=== PATIENT | male | born 1990 | race Caucasian/White ===

== ENCOUNTER 2019-01-30 07:08 | Emergency (ER) | payer OTHER ==
[2019-01-30] MEDS ORDERED: NS 1,000 ML IV ONE ×2 (07:33→08:46)
--- NOTE | 2019-01-30 07:42 | EDPHY ---
H & P Time Seen by Provider: 01/30/19 07:19 HPI/ROS: CHIEF COMPLAINT: Nausea, vomiting, shortness of breath HISTORY OF PRESENT ILLNESS: The patient is a 28-year-old male with a history of anxiety who presents to the emergency department with multiple complaints. Patient states that he was well last evening. At approximately 1:00 am he developed nausea and frequent episodes of nonbloody vomiting. Patient states that he has diffuse abdominal cramping. He has had no dysuria frequency. The patient also adds that he has a history of anxiety. He felt as though he was having an ear anxiety attack. He began to "hyperventilate."He feels this is made his breathing more difficult. He has no recent cough or fever. No travel. No sick contacts at home. REVIEW OF SYSTEMS: 10 systems were reveiwed and are negative with the exception of the elements mentioned in the history of present illness. Past Medical/Surgical History: Includes anxiety Past surgical history: Denies Social history: Patient occasionally drinks wine. Patient does not smoke Smoking Status: Never smoked Physical Exam: Vitals noted GENERAL: Mild acute distress. Patient looks mildly uncomfortable. Alert. HEENT: Eyes normal to inspection, normal pharynx, no signs of dehydration. NECK: Normal, supple. RESPIRATORY: No respiratory distress. Clear to auscultation bilaterally, no rales, rhonchi or wheezing. CVS: Regular rate and rhythm, no rubs, murmurs, or gallops. ABDOMEN: Soft, nontender, nondistended, no organomegaly. Benign BACK: Normal to inspection, no CVA tenderness. SKIN: Normal color, no rash, warm, dry. No pallor. EXTREMITIES: No pedal edema, no calf tenderness, no Homans sign or cords, no joint swelling. NEURO/PSYCH: Alert and oriented, normal mood and affect, normal motor sensory exam. Constitutional: Initial Vital Signs Temperature (C) 37 C 01/30/19 07:11 Heart Rate 89 01/30/19 07:11 Respiratory Rate 16 01/30/19 07:11 Blood Pressure 107/67 01/30/19 07:11 O2 Sat (%) 95 01/30/19 07:11 O2 Delivery Mode Room Air Allergies/Adverse Reactions: amoxicillin Allergy (Verified 01/30/19 07:10) Penicillins Allergy (Verified 01/30/19 07:10) Home Medications: Medication Instructions Recorded DULoxetine 01/30/19 Hydrocodone/APAP 5/325 [Weatherly 1 - 2 tab PO Q4 #13 tab 01/30/19 5/325 (RX)] Ondansetron Odt [Zofran Odt 4 mg 4 mg PO Q4PRN PRN #7 tab 01/30/19 (*)] Xanax 01/30/19 Medical Decision Making - Diagnostics Imaging Results: Imaging Impressions Chest X-Ray 01/30/19 07:45 Impression: 1. No active cardiopulmonary disease seen. Abdomen Ultrasound 01/30/19 10:26 Impression: 1. Normal gallbladder. No cholelithiasis, biliary dilation, hydronephrosis or free fluid. 2. Pancreas obscured by gas. Findings discussed with Emergency Department physician, Josefina Willett on 01/30, 11:36. ED Course/Re-evaluation: In the emergency department I discussed possible etiologies with the patient. I answered all his questions. IV was placed. Patient given normal saline 1 L IV for hydration. He was given Zofran 4 mg IV for nausea. Laboratory studies were ordered. Due the patient's shortness of breath EKG and chest x-ray were ordered. CBC is unremarkable. On recheck the patient states he is feeling better. Chemistry is unremarkable. Patient has elevated total bilirubin of 2.1. Unconjugated bilirubin of 1.7. Patient states that 1 of his friends texted him that he has nausea and vomiting as well. They did eat together. Right upper quadrant ultrasound was ordered. Hepatitis panel was ordered. Patient has a headache. He is given Toradol 15mg IV. EKG shows normal sinus rhythm, normal rate, normal axis, normal intervals. There are no ST or T-wave abnormalities. EKG is normal as interpreted by me. On recheck the patient feels better. Patient is abdomen is soft, nontender nondistended. Ultrasound: Please refer the dictated report. No acute disease noted. 11 50: I rechecked the patient. He had no further episodes of nausea or vomiting. His abdomen is soft, nontender nondistended. He was given warnings. I explained that his hepatitis panel is pending. He is given follow-up with primary care physician as well as gastroenterology Differential Diagnosis: Differential includes but is not limited to bronchitis, influenza, pneumonia, small-bowel obstruction, perforation, intussusception, volvulus, gastroenteritis , electrolyte abnormality, sugar abnormality, bacteremia, sepsis, anxiety - Data Points Laboratory Results: Laboratory Results 01/30/19 07:20 01/30/19 07:20 01/30/19 01/30/19 01/30/19 08:41 07:20 07:20 WBC 8.64 10^3/uL 10^3/uL (3.80-9.50) RBC 5.47 10^6/uL 10^6/uL (4.40-6.38) Hgb 17.2 g/dL g/dL (13.7-17.5) Hct 47.9 % % (40.0-51.0) MCV 87.6 fL fL (81.5-99.8) MCH 31.4 pg pg (27.9-34.1) MCHC 35.9 g/dL g/dL (32.4-36.7) RDW 11.7 % % (11.5-15.2) Plt Count 221 10^3/uL 10^3/uL (150-400) MPV 9.6 fL fL (8.7-11.7) Neut % (Auto) 89.8 % H % (39.3-74.2) Lymph % (Auto) 3.9 % L % (15.0-45.0) Pender % (Auto) 5.4 % % (4.5-13.0) Eos % (Auto) 0.5 % L % (0.6-7.6) Baso % (Auto) 0.2 % L % (0.3-1.7) Nucleat RBC Rel Count 0.0 % % (0.0-0.2) Absolute Neuts (auto) 7.76 10^3/uL H 10^3/uL (1.70-6.50) Absolute Lymphs (auto) 0.34 10^3/uL L 10^3/uL (1.00-3.00) Absolute Monos (auto) 0.47 10^3/uL 10^3/uL (0.30-0.80) Absolute Eos (auto) 0.04 10^3/uL 10^3/uL (0.03-0.40) Absolute Basos (auto) 0.02 10^3/uL 10^3/uL (0.02-0.10) Absolute Nucleated RBC 0.00 10^3/uL 10^3/uL (0-0.01) Immature Gran % 0.2 % % (0.0-1.1) Immature Gran # 0.02 10^3/uL 10^3/uL (0.00-0.10) RBC/WBC/PLT Morphology TNP Platelet Estimate TNP Sodium 139 mEq/L mEq/L (135-145) Potassium 4.4 mEq/L mEq/L (3.5-5.2) Chloride 103 mEq/L mEq/L (97-110) Carbon Dioxide 24 mEq/l mEq/l (22-31) Anion Gap 12 mEq/L mEq/L (6-14) BUN 27 mg/dL H mg/dL (7-23) Creatinine 1.1 mg/dL mg/dL (0.7-1.3) Estimated GFR > 60 Glucose 114 mg/dL H mg/dL (70-100) Calcium 9.7 mg/dL mg/dL (8.5-10.4) Total Bilirubin 2.1 mg/dL H mg/dL (0.1-1.4) Conjugated Bilirubin 0.4 mg/dL mg/dL (0.0-0.5) Unconjugated Bilirubin 1.7 mg/dL H mg/dL (0.0-1.1) AST 54 IU/L IU/L (17-59) ALT 60 IU/L IU/L (21-72) Alkaline Phosphatase 118 IU/L IU/L (38-126) Total Protein 7.6 g/dL g/dL (6.3-8.2) Albumin 4.9 g/dL g/dL (3.5-5.0) Lipase 90 IU/L IU/L (23-300) Nasal Influenza A PCR NEGATIVE FOR FLU A (NEGATIVE) Nasal Influenza B PCR NEGATIVE FOR FLU B (NEGATIVE) Hepatitis A IgM Ab Hep Bs Antigen Hep B Core IgM Ab Hepatitis C Antibody 01/30/19 07:00 WBC RBC Hgb Hct MCV MCH MCHC RDW Plt Count MPV Neut % (Auto) Lymph % (Auto) Pender % (Auto) Eos % (Auto) Baso % (Auto) Nucleat RBC Rel Count Absolute Neuts (auto) Absolute Lymphs (auto) Absolute Monos (auto) Absolute Eos (auto) Absolute Basos (auto) Absolute Nucleated RBC Immature Gran % Immature Gran # RBC/WBC/PLT Morphology Platelet Estimate Sodium Potassium Chloride Carbon Dioxide Anion Gap BUN Creatinine Estimated GFR Glucose Calcium Total Bilirubin Conjugated Bilirubin Unconjugated Bilirubin AST ALT Alkaline Phosphatase Total Protein Albumin Lipase Nasal Influenza A PCR Nasal Influenza B PCR Hepatitis A IgM Ab Pending Hep Bs Antigen Pending Hep B Core IgM Ab Pending Hepatitis C Antibody Pending Medications Given: Discontinued Medications Sodium Chloride (Ns) 1,000 mls @ 0 mls/hr IV EDNOW ONE; Wide Open PRN Reason: Protocol Stop: 01/30/19 07:34 Last Admin: 01/30/19 07:37 Dose: 1,000 mls Famotidine/Sodium Chloride (Pepcid 20 Mg (Premix)) 50 mls @ 200 mls/hr IV EDNOW ONE Stop: 01/30/19 07:58 Last Admin: 01/30/19 08:10 Dose: 50 mls Sodium Chloride (Ns) 1,000 mls @ 0 mls/hr IV ONCE ONE; Wide Open PRN Reason: Protocol Stop: 01/30/19 08:47 Last Admin: 01/30/19 08:46 Dose: 1,000 mls Ketorolac Tromethamine (Toradol) 15 mg IVP EDNOW ONE Stop: 01/30/19 10:26 Last Admin: 01/30/19 10:46 Dose: 15 mg Ondansetron HCl (Zofran) 4 mg IVP EDNOW ONE Stop: 01/30/19 07:45 Last Admin: 01/30/19 08:12 Dose: 4 mg Departure - Departure Disposition: Home, Routine, Self-Care Clinical Impression: Shortness of breath Vomiting Qualifiers: Vomiting type: unspecified Vomiting Intractability: non-intractable Nausea presence: with nausea Qualified Code(s): R11.2 - Nausea with vomiting, unspecified Condition: Good Instructions: Acute Nausea and Vomiting (ED), Shortness of Breath (ED) Additional Instructions: You have hepatitis panel pending. This will not be available today. When you have your follow-up appointment your physician, they can check on the results. You been given contact information for the on-call primary care physician as well as the guidance services coordinator. Referrals: Jaxson Lyn MD [Medical Doctor] - 5-7 days, call for appt. Laorn Schroeder MD [Medical Doctor] - 5-7 days, call for appt. Prescriptions: Hydrocodone/APAP 5/325 [Weatherly 5/325 (RX)] 1 - 2 tab PO Q4 #13 tab Ondansetron Odt [Zofran Odt 4 mg (*)] 4 mg PO Q4PRN PRN #7 tab PRN Reason: For Nausea & Vomiting
[2019-01-30] MEDS ORDERED: ONDANSETRON 4 MG/2 ML VIAL IVP ONE (07:44)
[2019-01-30] MEDS ORDERED: FAMOTIDINE 20 MG/NACL 50 ML IV ONE (07:44)
[2019-01-30 08:16] LABS: PLATELET COUNT 221 10^3/uL (150-400)
[2019-01-30] MEDS ORDERED: KETOROLAC 30 MG/1 ML SDV IVP ONE (10:25)
[2019-01-30 12:17] VITALS: BP 99/71
[2019-01-30 13:36] LABS: HEPATITIS A ANTIBODY IGM (BCH) NEGATIVE (NEGATIVE); HEPATITIS B CORE AB IGM NEGATIVE (NEGATIVE); HEPATITIS B SURFACE ANTIGEN NEGATIVE (NEGATIVE); HEPATITIS C ANTIBODY TOTAL NEGATIVE (NEGATIVE)
--- NOTE | 2019-01-30 15:03 | CPEKG ---
Test Reason : OPEN Blood Pressure : / mmHG Vent. Rate : 081 BPM Atrial Rate : 080 BPM P-R Int : 157 ms QRS Dur : 084 ms QT Int : 351 ms P-R-T Axes : 053 061 023 degrees QTc Int : 408 ms Sinus rhythm Confirmed by Josefina Willett ([id number] on 01/30/2019 3:03:05 PM Referred By: Josefina Willett Confirmed By:Josefina Willett
== END 2019-01-30 12:16 | disposition home or self-care (01) ==
DX: R06.02 Shortness of breath (principal); R11.2 Nausea with vomiting, unspecified; R10.11 Right upper quadrant pain; F41.9 Anxiety disorder, unspecified; E86.9 Volume depletion, unspecified; Z88.0 Allergy status to penicillin
CPT/HCPCS: 96365; G0472; J1885; J2405